=== PATIENT | male | born 1960 | race Caucasian/White ===

== ENCOUNTER 2021-01-26 17:23 | Emergency (ER) | payer OTHER ==
[~2021-01-26] VITALS: Ht 177.8 cm; Wt 113.6 kg
[2021-01-26 17:28] VITALS: TEMP 98.4
[2021-01-26 19:01] VITALS: BP 145/91; PULSE 83
== END 2021-01-26 19:01 | disposition home or self-care (01) ==
LOC: COL.ER 17:23
DX: J06.9 Acute upper respiratory infection, unspecified (principal); Z20.822 Contact with and (suspected) exposure to COVID-19

== ENCOUNTER 2021-01-29 13:50 | Inpatient (IN) | payer OTHER ==
[~2021-01-29] VITALS: Ht 177.8 cm; Wt 111.4 kg
[2021-01-29 14:32] LABS: BASO % 0.3 % (0.0-2.0); GRAN # 8.7 K/mm3 (1.4-6.5); GRAN % 84.3 % (42.2-75.2); LYMPH # 0.9 K/mm3 (1.2-3.4); LYMPH % 8.5 % (20.0-51.0); MEAN CELL VOLUME 88 fl (80.0-100.0); MEAN CORPUSCULAR HEMOGLOBIN 32 pg (27.0-31.0); MEAN CORPUSCULAR HGB CONC 36 g/dl (33.0-37.0); MEAN PLATELET VOLUME 9.7 fl (7.4-10.4); MONO # 0.7 K/mm3 (0.1-0.6); MONO % 6.6 % (1.7-9.3); PLATELET COUNT 175 K/mm3 (130-400); RED BLOOD COUNT 4.04 M/mm3 (4.20-5.60); REDCELL DISTRIBUTION WIDTH-CV 11.9 % (11.5-14.5)
[2021-01-29 14:33] LABS: HEMATOCRIT 35.7 % (42.0-52.0)
[2021-01-29] MEDS ORDERED: LATUDA120 MG PO (14:46)
[2021-01-29] MEDS ORDERED: ZOLOFT 100MG100 MG PO (14:46)
[2021-01-29] MEDS ORDERED: INVEGA6 MG PO ×2 (14:47→19:21)
[2021-01-29] MEDS ORDERED: EUTHYROX150 MCG PO (14:47)
[2021-01-29] MEDS ORDERED: CRESTOR20 MG PO (14:48)
[2021-01-29] MEDS ORDERED: DESYREL 100MG100 MG PO (14:48)
[2021-01-29 14:56] LABS: ALANINE AMINOTRANSFERASE 23 U/L (0-55); ALBUMIN 3.7 gm/dL (3.5-5.0); ALKALINE PHOSPHATASE 66 U/L (40-150); ANION GAP 11 mmol/L (7-16); AST,SGOT 25 U/L (5-34); BILIRUBIN,TOTAL 0.9 mg/dL (0.2-1.2); BLOOD UREA NITROGEN 13 mg/dL (8-26); C-REACTIVE PROTEIN 27.95 mg/dL (0.00-0.50); CALCIUM 9.7 mg/dL (8.4-10.2); CARBON DIOXIDE 20 mmol/L (22-29); CHLORIDE 101 mmol/L (98-107); CREATININE, serum 0.94 mg/dL (0.72-1.25); GLUCOSE 127 mg/dL (70-99); POTASSIUM 3.8 mmol/L (3.5-4.5); SODIUM 132 mmol/L (136-145); TOTAL PROTEIN 7.7 gm/dL (6.2-8.1)
[2021-01-29 15:01] LABS: TROPONIN-I < 0.010 ng/mL (0.00-0.033)
--- NOTE | 2021-01-29 18:00 | NUR ---
Patient admitted from the ED to room 311 for PNA. Upon initial assessment. Lungs sounds clear to auscultation. Normal S1 and S2 sounds present, radial and pedal pulses +2 bilaterally. Bowel sounds present in all four quadrants. No skin issues noted. VSS. Patient alert, unable to assess orientation. Patient extremely hard of hearing and is unable to see without glasses, which are in his apartment. Unable to complete admission assessments and paperwork due to the above impairments. Med rec completed based on home meds brought in with patient. Scheduled medications given. Patient is impulsive and is considered a high fall risk. No s/s of pain, discomfort, or further needs at this time. Call light in reach. Fall precautions in place. Report given to LISA Villalobos.
[2021-01-29 18:21] VITALS: BP 136/75; PULSE 83; TEMP 98.2
[2021-01-29 19:09] VITALS: BP 126/69; PULSE 101; TEMP 98
[2021-01-29] MEDS ORDERED: COLACE 100100 MG/CAP PO (19:21)
[2021-01-29 20:06] LABS: COLLECTION METHOD CLEAN CATCH
[2021-01-29 20:12] LABS: MUCOUS Present (NOT PRESENT); PH 6 (5-8); SQUAMOUS EPITHELIAL 0-2 /hpf (0-10); URINE APPEARANCE Clear (CLEAR/HAZY); URINE BACTERIA None Seen (NONE SEEN); URINE BILIRUBIN Negative (NEGATIVE); URINE BLOOD 2+ (NEGATIVE); URINE COLOR Yellow (YELLOW); URINE GLUCOSE Negative (NEGATIVE); URINE KETONE Trace (NEGATIVE); URINE LEUKOCYTE ESTERASE Negative (NEGATIVE); URINE NITRATE Negative (NEGATIVE); URINE PROTEIN(semi-quant) Negative (NEGATIVE); URINE RBC 0-2 /hpf (0-2); URINE UROBILINOGEN >=4.0 mg/dL (NEGATIVE)
[2021-01-29 23:48] VITALS: BP 129/69; PULSE 94; TEMP 102.1
--- NOTE | 2021-01-29 23:51 | NUR ---
PT TEMPERATURE ELEVATED AT THIS TIME. PT ASYMPTOMATIC. PT IS WARM TO TOUCH. ROOM TEMPERATURE LOWERED, COOL RAG PROVIDED, MEDICATION ADMINISTERED ORDERED. NURSE WILL CONTINUE TO MONITOR.
[2021-01-30] VITALS (8 sets, daily range): BP systolic 127–145; BP diastolic 58–87; PULSE 69–102; TEMP 97.9–100.7
--- NOTE | 2021-01-30 01:15 | NUR ---
PT TEMPERATURE RESOLVING, FROM 102.1 TO 100.4 TO 99.3 AT THIS TIME.
--- NOTE | 2021-01-30 06:13 | NUR ---
AT 0445 THIS MORNING PT BROKE OUT WITH RAISING TEMPERATURE AGAIN THIS NIGHT. PT PROVIDED MEDICATION, COOL RAG, ROOM TEMPERATURE REMAINS THE SAME. PT ASYMPTOMATIC. N/S CONTINUES TO INFUSE AT 100CC/HR TO RH IV. THIS NURSE WILL ENSURE TO RELAY TO ONCOMING SHIFT OF PT STATUS.
[2021-01-30 07:03] LABS: BASO % 0.3 % (0.0-2.0); EOS % 0.3 % (0-4.0); GRAN # 5.9 K/mm3 (1.4-6.5); GRAN % 75.4 % (42.2-75.2); HEMOGLOBIN 11.9 g/dl (13.5-18.0); LYMPH # 1.1 K/mm3 (1.2-3.4); LYMPH % 14.1 % (20.0-51.0); MEAN CELL VOLUME 91 fl (80.0-100.0); MEAN CORPUSCULAR HEMOGLOBIN 32 pg (27.0-31.0); MEAN CORPUSCULAR HGB CONC 36 g/dl (33.0-37.0); MEAN PLATELET VOLUME 9.6 fl (7.4-10.4); MONO # 0.8 K/mm3 (0.1-0.6); MONO % 9.6 % (1.7-9.3); PLATELET COUNT 164 K/mm3 (130-400); REDCELL DISTRIBUTION WIDTH-CV 11.9 % (11.5-14.5)
[2021-01-30 07:17] LABS: CREATININE, serum 0.81 mg/dL (0.72-1.25); POTASSIUM 3.7 mmol/L (3.5-4.5)
[2021-01-30 07:22] LABS: HEMATOCRIT 33.5 % (42.0-52.0)
--- NOTE | 2021-01-30 13:40 | NUR ---
PT JUST HAD AN UNWITNESSED FALL. PT STATES THAT HE FELL WHILE HE WAS IN THE BATHROOM. HE HAS BEEN IMPULSIVE IN GETTING UP. WHEN ENTERING THE ROOM, THE PATIENT LOOKED DISHELVELED, WHEN ASKING THE PATIENT WHAT HAPPENED, HE STATES THAT HE WENT TO THE BATHROOM, AND FELL AND HIT HIS HEAD. UPON ASSESSMENT, THE PATIENT DOES HAVE A HEMATOMA ON THE EYEBROW. THE PATIENT STATES THAT HIS EYE BROW WAS HURTING. IN ALL THE ASSESSMENTS, THE PATIENT STATES THAT HE WOULD LIKE US TO CALL TIAN CATES-CORRECTIONAL MAINTENANCE TECHNICIAN 13 YRS [phone]. PROVIDER WAS NOTIFIED; CT OF THE HEAD WAS ORDERED.
--- NOTE | 2021-01-30 15:15 | NUR ---
PT SUPPORT PERSON TIAN CALLED BACK AND STATES THAT SHE DECIDED TO CONTACT ANOTHER PERSON THAT HE COMMUNICATES WITH VIA FACEBOOK D/T HIS VISION AND HEARING IMPAIRMENT, AND HE STARTED HAVING ALL OVER BODY MUSCULAR PAIN Jan. SHE STATES THAT SHE IS CONCERNED THAT THE PATIENT HAS BEEN STEREOTYPED IN THE PAST D/T HIS INEFFECTIVE COMMUNICATION RELATED TO HIS HEARING AND VISION LOSS. DURING THIS RN'S COMMUNICATION WITH THE PATIENT ON THE ORDERS FOR A LUMBAR PUNCTURE, THE PATIENT STATES THAT HE DID HAVE ONE WHEN HE WAS 6YRS OLD, WELL WHEN HE WAS 20YRS OLD. 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 WHEN I WAS 20, THEY DIDN'T UNDERSTAND MY IMPAIRMENT, AND THOUGHT I HAD A BRAIN TUMOR AND DID THE SPINAL TAP THEN WELL, OF COURSE IT WAS NEGATIVE." THE PATIENT IS EFFECTIVE IN HIS COMMUNICATION, IS ALERT AND ORIENTED, AND IS A FANTASTIC HISTORIAN. HE GIVES THE YEAR IT HAPPENED, AND WHAT THE RESULTS WERE. THIS PATIENT DOES NOT HAVE ANY COGNITIVE IMPAIRMENT. HE IS ABLE TO STATE THE DATE AND TIME, WELL WHERE HE IS, AND WHY HE IS HERE. HIS ABILITY TO COMMUNICATE WITH HIS FRIENDS VIA FACEBOOK MESSENGER HAS GIVEN A HISTORY OF SYMPTOMS. TIAN STATES THAT SHE RECEIVED A STRING OF MESSAGES FROM HIM: Monday01/26/21 AT 1100AM: IN THAT MESSAGE TO HER HE STATES THAT HE WAS HAVING A HEADACHE, HAVING SOUND AND PHYSICAL SENSATIONS LIKE FLASHES. HE TOLD HER THAT HE HAD BEEN VACCINATED, AND HAD NOT RECEIVED THE BOOSTER YET. Monday01/26/21 AT 2100: HE STATES HE WENT TO THE ER, HAD BEEN TESTED FOR COVID AND WAS NEGATIVE, AND HAS BEEN HAVING NAUSEA DAILY. Monday01/27/21 AT 0600: HE STATES HE IS NOW HAVING DRY MOUTH, AND HIS HEADACHE IS GETTING WORSE. 01/28: THE PATIENT DOES NOT MESSAGE HER, AND SHE DOES NOT HEAR FROM HIM. Monday01/29/21 AT 0300: THE PATIENT SENDS A MESSAGE THAT STATES THAT HE IS FEELING WORSE, CAN'T WALK, HIS HANDS ARE NUMB, SEVERE HEADACHES AND FEELS LIKE HE IS HAVING BALANCE ISSUES. ALL OF THESE THINGS HAVE BEEN CONVEYED TO THE PROVIDER, DR. DAVIES, WHO STATES THAT SINCE HE IS UNAWARE OF THE PATIENT'S BASELINE, HE DOES NOT FEEL THAT HE REQUIRES A NEUROLOGY CONSULT AT THIS TIME.
[2021-01-30 19:38] LABS: CSF APPEARANCE CLEAR; CSF COLOR COLORLESS
[2021-01-30 19:39] LABS: CSF MONONUCLEAR 67 % (70-100); CSF POLYMORPHONUCLEAR 33 % (0-6); CSF RBC < 1 /mm3 (0-0)
[2021-01-31 04:15] VITALS: BP 139/75; PULSE 58; TEMP 97.8
--- NOTE | 2021-01-31 05:44 | NUR ---
PT HAD UNEVENTFUL NIGHT THIS SHIFT. GAIT REMAINS UNSTEADY BOTH WALKER AND GAIT BELT USED FOR AMBULATION. A/0X4, VERBALLY EXPRESSIVE AND ABLE TO FOLLOW VERBAL COMMANDS. N/S CONTINUES TO INFUSE AT 75CC/HR AND ABX. PT FEBRILE AT BEGINNING OF SHIFT, MEDICATION ADMINISTERED, COOL RAGS PROVIDED. FEVER RESOLVED AT THIS TIME. CALL LIGHT WITHIN REACH. BED LOW. BED ALARM ON.
[2021-01-31 06:48] VITALS: BP 116/56; PULSE 61; TEMP 99.1
[2021-01-31 06:53] LABS: CREATININE, serum 0.8 mg/dL (0.72-1.25); POTASSIUM 3.4 mmol/L (3.5-4.5)
[2021-01-31 06:58] LABS: BASO % 0.6 % (0.0-2.0); EOS # 0.2 K/mm3 (0.0-0.7); EOS % 3.2 % (0-4.0); GRAN # 4.1 K/mm3 (1.4-6.5); GRAN % 59.3 % (42.2-75.2); HEMOGLOBIN 11.7 g/dl (13.5-18.0); LYMPH # 1.8 K/mm3 (1.2-3.4); LYMPH % 25.9 % (20.0-51.0); MEAN CELL VOLUME 91 fl (80.0-100.0); MEAN CORPUSCULAR HEMOGLOBIN 31 pg (27.0-31.0); MEAN CORPUSCULAR HGB CONC 35 g/dl (33.0-37.0); MEAN PLATELET VOLUME 9.6 fl (7.4-10.4); MONO # 0.7 K/mm3 (0.1-0.6); MONO % 10.7 % (1.7-9.3); PLATELET COUNT 173 K/mm3 (130-400); RED BLOOD COUNT 3.73 M/mm3 (4.20-5.60)
[2021-01-31 07:08] LABS: HEMATOCRIT 33.9 % (42.0-52.0)
[2021-01-31 11:13] VITALS: BP 132/75; PULSE 68; TEMP 98.8
--- NOTE | 2021-01-31 13:04 | NUR ---
Sw met with the pt in . Pt is deaf and legally blind. Sw could not complete intake. Pt Emergency contact is a "friend". Sw will not contact pt friend for health information due to HIPPA. Sw was able to get information from chart, pt PCP is Charleen Levine and gets his medication from [facility]: Rony [phone] friend. D/C: Home.
[2021-01-31 14:59] VITALS: BP 131/87; PULSE 82; TEMP 98.5
--- NOTE | 2021-01-31 16:50 | NUR ---
PT STATES "I AM UNABLE TO CONTROL MY BLADDER." CONTACTED PROVIDER THOMAS TRUJILLO WHO WILL DISCUSS WITH DR. DAVIES.
[2021-01-31 20:20] VITALS: BP 123/65; PULSE 76; TEMP 98.1
[2021-01-31 23:51] VITALS: BP 118/59; PULSE 82; TEMP 98.3
[2021-02-01 00:46] VITALS: BP 118/59; PULSE 80; TEMP 98.4
[2021-02-01 04:06] VITALS: BP 112/69; PULSE 75; TEMP 97.9
[2021-02-01 06:33] LABS: COLLECTION METHOD CLEAN CATCH
[2021-02-01 06:39] LABS: BASO % 0.7 % (0.0-2.0); EOS # 0.3 K/mm3 (0.0-0.7); EOS % 4.9 % (0-4.0); GRAN # 3.2 K/mm3 (1.4-6.5); GRAN % 55.7 % (42.2-75.2); HEMOGLOBIN 11.4 g/dl (13.5-18.0); LYMPH # 1.7 K/mm3 (1.2-3.4); LYMPH % 30.1 % (20.0-51.0); MEAN CELL VOLUME 90 fl (80.0-100.0); MEAN CORPUSCULAR HEMOGLOBIN 31 pg (27.0-31.0); MEAN CORPUSCULAR HGB CONC 35 g/dl (33.0-37.0); MEAN PLATELET VOLUME 9.3 fl (7.4-10.4); MONO # 0.5 K/mm3 (0.1-0.6); MONO % 8.2 % (1.7-9.3); PLATELET COUNT 178 K/mm3 (130-400); RED BLOOD COUNT 3.63 M/mm3 (4.20-5.60); REDCELL DISTRIBUTION WIDTH-CV 12.1 % (11.5-14.5)
[2021-02-01 06:43] LABS: MUCOUS Present (NOT PRESENT); PH 6 (5-8); SQUAMOUS EPITHELIAL None Seen /hpf (0-10); URINE APPEARANCE Clear (CLEAR/HAZY); URINE BACTERIA None Seen (NONE SEEN); URINE BILIRUBIN Negative (NEGATIVE); URINE BLOOD 1+ (NEGATIVE); URINE COLOR Yellow (YELLOW); URINE GLUCOSE Negative (NEGATIVE); URINE KETONE Negative (NEGATIVE); URINE LEUKOCYTE ESTERASE Negative (NEGATIVE); URINE NITRATE Negative (NEGATIVE); URINE PROTEIN(semi-quant) Negative (NEGATIVE); URINE UROBILINOGEN Negative (NEGATIVE)
[2021-02-01 06:47] LABS: HEMATOCRIT 32.7 % (42.0-52.0)
[2021-02-01 06:53] LABS: CALCIUM 9.2 mg/dL (8.4-10.2); CREATININE, serum 0.76 mg/dL (0.72-1.25); POTASSIUM 3.5 mmol/L (3.5-4.5)
[2021-02-01 09:30] VITALS: BP 124/72; PULSE 73; TEMP 97.7
--- NOTE | 2021-02-01 11:00 | NUR ---
ASSESSMENT COMPLETE. PT BLIND AND HARD OF HEARING. PT CAN HEAR BETTER IN LEFT EAR, IF YOU TALK LOUDLY. PT RESTING IN BED. PT STATES HE HAS A LIGHT HEADACHE. PT DENIES NEED FOR PAIN MEDICATION. PT DENIES PALPITATIONS, SOB OR DIZZINESS. PT HAS MRI OF BRAIN, L & T SPINE SCHEDULE TODAY. PT STATES HE HAS NO OTHER NEEDS AT THIS TIME. CALL LIGHT WITHIN REACH.
[2021-02-01 12:05] VITALS: BP 127/88; PULSE 88; TEMP 97.5
--- NOTE | 2021-02-01 15:15 | NUR ---
Proof Machine Operator Supervisor attended clinical rounds with the team and PT is recommending IPR. PAMELA contacted GEORGE De Leon Director and gave referral. Patient will have MRI prior to discharge. PAMELA then contacted patient's friend, Ira to gather baseline information. Ira advised she used to be patient's boss when he worked at [employer]. Ira advised she now lives in [place] but checks in on patient from time to time. Per Ira, patient is fairly independent at home however occasionally gets rides from friends to appointments. 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 Ira is unsure if patient is currently on disability. PAMELA contacted PAMELA Rivera at [facility] as patient sees Dr. Grove for primary care. Nicole advised she has not been consulted on patient and that he was seen in November with no issues. PAMELA contacted Ernesto Financial Counselor to determine if patient may qualify for disability or Medicaid. PAMELA contacted GEORGE De Leon Director to give her the above update. Haley advised she will look at submitting to insurance once the MRI is done. Discharge Plan: IPR screen
[2021-02-01 17:12] VITALS: BP 140/76; PULSE 82; TEMP 98
--- NOTE | 2021-02-01 19:24 | NUR ---
RECEIVED CHANGE OF SHIFT REPORT FROM DAY SHIFT NURSES.
[2021-02-01 20:49] VITALS: BP 110/54; PULSE 80; TEMP 97.8
[2021-02-02] VITALS (8 sets, daily range): BP systolic 108–145; BP diastolic 59–82; PULSE 67–102; TEMP 97.6–98.8
--- NOTE | 2021-02-02 07:01 | NUR ---
CHANGE OF SHIFT REPORT GIVEN TO DAY SHIFT RNs, FNAI.
[2021-02-02 07:10] LABS: BASO # 0.1 K/mm3 (0.0-0.2); BASO % 0.7 % (0.0-2.0); EOS # 0.4 K/mm3 (0.0-0.7); EOS % 4.7 % (0-4.0); GRAN # 4.7 K/mm3 (1.4-6.5); GRAN % 61.5 % (42.2-75.2); HEMOGLOBIN 12.3 g/dl (13.5-18.0); LYMPH % 25.5 % (20.0-51.0); MEAN CELL VOLUME 89 fl (80.0-100.0); MEAN CORPUSCULAR HEMOGLOBIN 32 pg (27.0-31.0); MEAN CORPUSCULAR HGB CONC 35 g/dl (33.0-37.0); MEAN PLATELET VOLUME 9.6 fl (7.4-10.4); MONO # 0.6 K/mm3 (0.1-0.6); MONO % 7.2 % (1.7-9.3); PLATELET COUNT 227 K/mm3 (130-400); REDCELL DISTRIBUTION WIDTH-CV 11.9 % (11.5-14.5)
[2021-02-02 07:17] LABS: CALCIUM 9.5 mg/dL (8.4-10.2); CREATININE, serum 0.78 mg/dL (0.72-1.25); POTASSIUM 3.6 mmol/L (3.5-4.5)
[2021-02-02 07:21] LABS: HEMATOCRIT 34.8 % (42.0-52.0)
--- NOTE | 2021-02-02 09:00 | NUR ---
ASSESSMENT COMPLETE. PT COOPERATIVE WITH CARES. PT IS HARD OF HEARING AND LEGALLY BLIND. PT RESTING IN BED EATING BREAKFAST. PT DENIES PAIN, PALPITATIONS, SOB OR DIZZINESS. WHEN ASKED IF PT HAS ANY OTHER NEEDS, PT STATES NO. CALL LIGHT WITHIN REACH.
--- NOTE | 2021-02-02 16:11 | NUR ---
Haley, IPR Director, reports that she submitted to insurance for auth and is still awaiting approval.
--- NOTE | 2021-02-02 17:51 | NUR ---
PT IN BED EATING DINNER NOW. PHYSICIAN VISITED PT TO LET HIM KNOW AN ABX WAS ADDED TO HIS MEDS. PT HAD AN UNEVENTFUL DAY. PT DENIES PAIN, PALPITATION, SOB, AND DIZZINESS. PT ASKED IF HE HAD ANY OTHER NEEDS. PT STATED, NO. CALL LIGHT WITHIN REACH.
--- NOTE | 2021-02-02 20:15 | NUR ---
PATIENT IS RESTING IN BED.PATIENT IS BLIND AND [place].PATIENT TOOK PILLS WHOLE WUTH NO TROUBLE.PATIENT DENIES PAIN.PATIENT IS UP WITH ONE WITH A WALKER.pATIENT DENIES PAIN.NO OTHER NEEDS AT THIS TIME.
[2021-02-03 00:02] VITALS: BP 148/73; PULSE 69; TEMP 97.9
[2021-02-03 03:37] VITALS: BP 120/80; PULSE 71; TEMP 98.1
--- NOTE | 2021-02-03 04:42 | NUR ---
PATIENT HAD UNEVENTFUL NIGHT.SAFETY MEASURES IN PLACE.NO OTHER NEEDS AT THIS TIME.
[2021-02-03 07:37] VITALS: BP 116/80; PULSE 63; TEMP 97.5
--- NOTE | 2021-02-03 09:14 | NUR ---
Patient is currently ambulating in the eli w/ this assistance of PT. Patient is using a walker. Gait is impaired and patient appears slightly unsteady. Patient is slow to move. Dr. Crandall told this RN that he would like the patient to sit in the recliner today. PT was told and will place the patient in the recliner after ambulation.
[2021-02-03 11:38] LABS: HSV 2 DNA PCR QUAL Not Detected (())
[2021-02-03 11:44] VITALS: BP 134/78; PULSE 85; TEMP 98.4
[2021-02-03 16:38] VITALS: BP 160/80; PULSE 74; TEMP 98.8
[2021-02-03] MEDS ORDERED: OMNICEF 300MG300 MG PO (16:48)
--- NOTE | 2021-02-03 17:11 | NUR ---
Haley, IPR Director, reports that she received approval from the patient's insurance and they are all good to take the patient today. The patient is to discharge today, 02/03, to [facility]. No additional needs at this time.
--- NOTE | 2021-02-03 18:19 | NUR ---
Patient being discharged and made IPR status. Report given to Jaclyn Brito RN.
== END 2021-02-03 18:00 | DRG 871 ==
LOC: COL.ER 13:50 → MEDICAL 16:11 → EDBEDREQ 16:12 → MEDICAL 01-30 09:42
PROVIDERS: Emergency Medicine; Physician Assistant; ADMIT Student in an Organized Health Care Education/Training Program
PROC: 009U3ZX Drainage of Spinal Canal, Percutaneous Approach, Diagnostic (ICD-10-PCS; principal; 2021-01-30)
DX: A41.9 Sepsis, unspecified organism (principal); J18.9 Pneumonia, unspecified organism; G93.41 Metabolic encephalopathy; E87.1 Hypo-osmolality and hyponatremia; E03.9 Hypothyroidism, unspecified; F25.9 Schizoaffective disorder, unspecified; E78.5 Hyperlipidemia, unspecified; H91.90 Unspecified hearing loss, unspecified ear; H54.8 Legal blindness, as defined in USA; R32 Unspecified urinary incontinence; E87.6 Hypokalemia; Z23 Encounter for immunization
CPT/HCPCS: 99222-AI; 99233-AI; 99239; A9585; J0133; J0696; J1650; J3370; J7030; J7040; J7050; Q9967

== ENCOUNTER 2021-02-03 16:57 | Inpatient (IN) | payer OTHER ==
[~2021-02-03] VITALS: Ht 177.8 cm; Wt 111.8 kg
[~2021-02-03 16:57] MED LIST: COLACE 100100 MG/CAP PO; CRESTOR20 MG PO; DESYREL 100MG100 MG PO; EUTHYROX150 MCG PO; INVEGA6 MG PO; LATUDA120 MG PO; OMNICEF 300MG300 MG PO; ZOLOFT 100MG100 MG PO
--- NOTE | 2021-02-03 18:15 | NUR ---
Patient to room 338 by wheelchair from the medical unit. 2xassist to the bed with a gait belt. Nurse oriented the patient to location, room and bed. Patient positioned for comfort. Call light within reach. Bed alarm on
[2021-02-03 18:59] VITALS: BP 143/82; PULSE 76; TEMP 98.6
--- NOTE | 2021-02-03 20:30 | NUR ---
PT RESTING IN BED. LEGALLY BLIND/ DEAF RT EAR/ [place] LT EAR. DYARTHIC NOTED. FOLLOWS DIRECTIONS WITH SLOW RESPONSE. INCONT OF URINE. CHANGE BRIEFS. PT USED URINAL. DENIES PAIN/. CALL LIGHT IN REACH. BED ALARM SET.
[2021-02-04 05:10] VITALS: BP 144/73; PULSE 64; TEMP 98.4
--- NOTE | 2021-02-04 07:06 | NUR ---
Report received from LISA Alejandra. Patient is sleeping in bed. Call light and bedside table are within reach. Will continue to monitor patient throughout shift.
[2021-02-04 17:42] VITALS: BP 138/82; PULSE 93; TEMP 98.4
--- NOTE | 2021-02-04 19:00 | NUR ---
RECEIVED CHANGE OF SHIFT REPORT FROM DAY SHIFT NURSE. BED ALARM ON WHEN IN BED WITH CALL LIGHT WITHIN REACH.
[2021-02-05 04:02] VITALS: BP 132/91; PULSE 78; TEMP 98.2
[2021-02-05 06:49] LABS: BASO # 0.1 K/mm3 (0.0-0.2); BASO % 0.7 % (0.0-2.0); EOS # 0.4 K/mm3 (0.0-0.7); EOS % 3.5 % (0-4.0); GRAN % 65.2 % (42.2-75.2); HEMATOCRIT 40.5 % (42.0-52.0); LYMPH # 2.6 K/mm3 (1.2-3.4); LYMPH % 24.3 % (20.0-51.0); MEAN CELL VOLUME 91 fl (80.0-100.0); MEAN CORPUSCULAR HEMOGLOBIN 32 pg (27.0-31.0); MEAN CORPUSCULAR HGB CONC 35 g/dl (33.0-37.0); MEAN PLATELET VOLUME 9.5 fl (7.4-10.4); MONO # 0.6 K/mm3 (0.1-0.6); MONO % 5.7 % (1.7-9.3); PLATELET COUNT 315 K/mm3 (130-400); RED BLOOD COUNT 4.43 M/mm3 (4.20-5.60); REDCELL DISTRIBUTION WIDTH-CV 12.2 % (11.5-14.5)
[2021-02-05 07:13] LABS: CALCIUM 9.2 mg/dL (8.4-10.2); CREATININE, serum 0.94 mg/dL (0.72-1.25); MAGNESIUM 2.1 mg/dL (1.6-2.6); POTASSIUM 3.8 mmol/L (3.5-4.5)
--- NOTE | 2021-02-05 07:23 | NUR ---
CHANGE OF SHIFT REPORT GIVEN TO DAY SHIFT RNSUYAPA
[2021-02-05 08:19] VITALS: BP 133/70; PULSE 68; TEMP 98
--- NOTE | 2021-02-05 13:00 | NUR ---
Pt has done well today. He has worked with therapy and has had no complaints. He is able to feed himself once the tray is set up. Pt is one assist with ambulation and does well with cues. Chair/bed alarms on. Call light within reach.
--- NOTE | 2021-02-05 16:02 | NUR ---
fabric and textile factory worker attempted to complete IPR intake with patient but was unsuccessful due to communication barriers. Per previous SW notes: Patient resides at home independently however is legally deaf and blind. PCP is Dr. Grove and the patient utilizes [facility] for perscriptions. Patient's emergency contact is his friend Kelsey ([phone]) who now lives in [place].
[2021-02-05 18:35] VITALS: BP 137/72; PULSE 76; TEMP 97.9
--- NOTE | 2021-02-05 18:49 | NUR ---
RECEIVED CHANGE OF SHIFT REPORT FROM DAY SHIFT NURSE. PATIENT RESTING IN BED DURING REPORT, DOES NOT WAKE WHEN NURSING STAFF ENTER ROOM, BREATHING NONLABORED AND EVEN. BED ALARM ON WITH CALL LIGHT WITHIN REACH.
[2021-02-06 05:30] VITALS: BP 135/81; PULSE 59; TEMP 97.8
--- NOTE | 2021-02-06 07:02 | NUR ---
CHANGE OF SHIFT REPORT GIVEN TO DAY SHIFT RNELYSSA.
--- NOTE | 2021-02-06 07:44 | NUR ---
Patient sitting up in bed, is independent with repositioning and eating. A&O. VSS. Denies pain and discomfort. MODOC and slow to answer. No further needs expressed. Call light within reach. Bed alarm on
[2021-02-06 17:25] VITALS: BP 147/84; PULSE 81; TEMP 98
--- NOTE | 2021-02-06 18:11 | NUR ---
Patient had an uneventful day. Worked with therapy and tolerated well. A&Ox3. VSS. Patient independent with eating and repositioning. Patient called nursing staff for assistance with ambulation or needs. Denies pain and discomfort. Call light within reach. Bed alarm on
--- NOTE | 2021-02-06 22:36 | NUR ---
PT USES CALL LIGHT BUT DOES NOT ANSWER. PT IS IN BED, STATES THAT HE HAS SPILLED HIS URINAL. PT SPEAKS VERY SOFTLY BUT IS TETLIN IN RIGHT EAR. PT'S LINENS ARE CHANGED ET PERICARE COMPLETED. PT DENIES NEED TO USE BR @ THIS TIME OR OTHER NEEDS, STATES THANK YOU. RESPIRATIONS ARE UNLABORED. BED ALARM ON, CALL LIGHT WITHIN REACH.
[2021-02-07 03:12] VITALS: BP 138/75; PULSE 89; TEMP 98.2
--- NOTE | 2021-02-07 04:50 | NUR ---
PT INCONTINENT OF A LARGE AMOUNT OF URINE. PT HAD BEEN USING URINAL ET HAD SPILLED THE URINE BACK ON HIMSELF. EXPLAINED TO PT THAT IT MAY BE EASIER TO ASK FOR HELP WITH URINAL IN FUTURE. LINENS ARE CHANGED WITH 1 ASSIST, PT IS ABLE TO EASILY TURN SELF IN BED. SYNTHROID ADMINISTERED. PT HAS NO PROBLEMS SWALLOWING ET HOLDS WATER INDEPENDENTLY. PT DENIES OTHER NEEDS. RESPIRATIONS UNLABORED. BED ALARM ON, CALL LIGHT WITHIN REACH.
--- NOTE | 2021-02-07 08:00 | NUR ---
Patient called nursing staff for assistance to use the bathroom. Patient ambulated with 1xassist, gait belt and walker to the bathroom. A&Ox3. VSS. Denies pain and discomfort. Independent in the bed and with feeds. No further needs expressed. Call light within reach. Bed alarm on
[2021-02-07 16:57] VITALS: BP 145/87; PULSE 84; TEMP 98.8
--- NOTE | 2021-02-07 17:36 | NUR ---
Patient called several times to go to the bathroom. 1xassit with gait belt and walker, patient has had loose stools, but no incontinent BM. A&O. Denies pain and discomfort. Independent in bed and with feeds. Call light within reach. Bed alarm on
--- NOTE | 2021-02-07 19:32 | NUR ---
PT RESTING IN BED. LEGALLY BLIND AND DEAF RT EAR. [place] LT EAR. DYARTHIA NOTED. COMMUNCATION IS A CHALLENGE BUT PT ABLE TO MAKE NEEDS KNOWN. PT INCONTINENT OF URINE. CHANGES LINEN AND BRIEFS. CALL LIGHT IN REACH BED ALARM SET.
[2021-02-08 06:17] VITALS: BP 136/71; PULSE 69; TEMP 97.2
--- NOTE | 2021-02-08 07:00 | NUR ---
Pt resting in bed. Will continue to monitor.
--- NOTE | 2021-02-08 12:42 | NUR ---
SPOKE WITH GERMAN RODRIGUEZ REGARDING PSYCH CONSULT. STATE SHE HAS INTIATED CONSULT.
--- NOTE | 2021-02-08 13:14 | NUR ---
Admission QIM scores were reviewed by the team. Code of 3 chosen for oral hygiene was determined by team discussion to be the most usual performance for this patient during the assessment period. Code of 1 chosen for toilet hygiene was determined by team discussion to be the most usual performance for this patient during the assessment period. Code of 2 chosen for toileting transfers was determined by team discussion to be the most usual performance for this patient during the assessment period. Code of 5 chosen for upper body dressing was determined by team discussion to be the most usual performance before interventions for this patient during the assessment period. Code of 3 chosen for lower body dressing was determined by team discussion to be the most usual performance for this patient during the assessment period. Code of 4 chosen for putting on/taking off footwear was determined by team discussion to be the most usual performance for this patient during the assessment period. Code of 4 chosen for rolling left to right was determined by team discussion to be the most usual performance before interventions for this patient during the assessment period. Code of 4 chosen for sit to lying was determined by team discussion to be the most usual performance before interventions for this patient during the assessment period. Code of 4 chosen for lying to sitting on side of bed was determined by team discussion to be the most usual performance for this patient during the assessment period. Code of 3 for sit to stand was determined by team discussion to be the most usual performance for this patient during the assessment period. Code of 3 for chair/bed to chair transfers was determined by team discussion to be the most usual performance for this patient during the assessment period.--PD Candelaria
[2021-02-08 16:40] VITALS: BP 129/77; PULSE 91; TEMP 98.5
[2021-02-09 05:01] VITALS: BP 121/62; PULSE 84; TEMP 97.4
--- NOTE | 2021-02-09 06:45 | NUR ---
Report received from LISA Bray. Patient is sleeping in bed. Call light and bedside table are within reach. Will continue to monitor patient throughout shift.
--- NOTE | 2021-02-09 07:32 | NUR ---
pt had several episodes of incontinence this shift, linens changed x3, up to restroom this am using GB/walker and 1 assist for BM.
--- NOTE | 2021-02-09 16:05 | NUR ---
well service derrick worker attempted to meet with patient again to complete intake. Patient has a white board in his room which communication was done through, but still limited.Patient can also respond with simple "yes" or "no" answers. Patient states that he does live at home alone and works. Unknown if he works FT/PT, where or how he transports.Patient confirms that he does not have any assistive devices such as hearing aids to help with his debilities.When asked if the patient had any children he verbalized "no". When asked if he had any sibilings he verbalized "no". Patient proceeds to write down the names of : Anais, Oliva and Kacy in addition to another word that was illegible and was wasn't able to verbally communicate their relation. Attempt was made to contact the patient's friend Ira and was unsuccessful. Attempt was made to contact Nicole at [employer] and was unsuccessful. Message left for both, to see if they can provide insight to gaps in the above information. Per Haley in IPR patient's deficit's in vision and hearing are due to the patient having Encephalopathy as a child and that this has been a long standing barrier for him.
--- NOTE | 2021-02-09 16:20 | NUR ---
Patient went to surgery for cholecystecotomy
[2021-02-09 17:03] VITALS: BP 124/90; PULSE 89; TEMP 98.9
--- NOTE | 2021-02-10 03:47 | NUR ---
Patient rested quietly throughout night, uses call bledsoe appropriately, call bledsoe w/i reach, assisted to bathroom, fall precautions in place, unsteady on feet, legally blind, [place], used communication board to write with success, no IV, will continue to monitor
[2021-02-10 05:19] VITALS: BP 123/91; PULSE 67; TEMP 97.9
--- NOTE | 2021-02-10 07:03 | NUR ---
Report received from LISA Ibarra. Patient is sleeping in bed. Call light and bedside table are within reach. Will continue to monitor patient throughout shift.
--- NOTE | 2021-02-10 16:45 | NUR ---
Wool Broker met with patient and provided copy of team conference notes. SW advised patient that the team would re-evaluate in a week and were not ready to set a discharge date. Patient gave SW a thumbs up. SW to follow up with patient's friends on if they can bring in patient's magnifying glasses and computer keyboard.
[2021-02-10 18:00] VITALS: BP 147/70; PULSE 73; TEMP 98.6
--- NOTE | 2021-02-10 21:37 | NUR ---
PT RESTING IN BED. LEGALLY BLIND. DEAF IN RT EAR. POOR HEARING IN LT. SPEECH DIFFICULT TO UNDERSTAND. INCONTINENT OF URINE. CALL LIGHT IN REACH. BED ALARM SET.
[2021-02-11 04:57] VITALS: BP 116/70; PULSE 61; TEMP 97.6
--- NOTE | 2021-02-11 07:03 | NUR ---
Report received from LISA Alejandra. Patient is sleeping in bed. Call light and bedside table are within reach. Will continue to monitor patient throughout shift.
--- NOTE | 2021-02-11 16:31 | NUR ---
Nicole ROACH from [facility] who provided additional information on the patient however it is limited due to the patient being new to them. His old physicians were Haley/[facility]. Per Nicole, Patient has his medications managed through [facility] and sees Zandra Green.Patient does have specialized glasses that helps him see and that all communication he has with the physicians is done through written form.Patient was a patient at [facility] in [facility]. Has noted that the patient was utilizing [facility] in the past and that he was established with a fair program with [facility]. Throughout the patient's chart he has multiple addresses listed in addition to multiple phone numbers with no names attached to them. No emergency contact is listed in the patient's chart. In the patient's history, his mother 7 years ago and his father an unknown amount of time ago. [facility] does not have a DPOA-HC on file.
[2021-02-11 18:00] VITALS: BP 131/64; PULSE 85; TEMP 98.1
--- NOTE | 2021-02-11 19:00 | NUR ---
RECEIVED CHANGE OF SHIFT REPORT FROM DAY SHIFT NURSE.
[2021-02-12 05:06] VITALS: BP 125/65; PULSE 70; TEMP 97.3
--- NOTE | 2021-02-12 07:00 | NUR ---
appears to be sleeping, bedside shift report received from LISA Andrade
--- NOTE | 2021-02-12 07:04 | NUR ---
CHANGE OF SHIFT REPORT GIVEN TO DAY SHIFT TAYLOR GONZALEZ.
--- NOTE | 2021-02-12 07:15 | NUR ---
awakened and assisted him sitting up in bed to have breakfast,
[2021-02-12 07:34] LABS: BASO # 0.1 K/mm3 (0.0-0.2); BASO % 0.8 % (0.0-2.0); EOS # 0.2 K/mm3 (0.0-0.7); EOS % 2.8 % (0-4.0); GRAN # 5.4 K/mm3 (1.4-6.5); GRAN % 62.3 % (42.2-75.2); HEMATOCRIT 43.2 % (42.0-52.0); HEMOGLOBIN 14.7 g/dl (13.5-18.0); LYMPH # 2.2 K/mm3 (1.2-3.4); MEAN CELL VOLUME 93 fl (80.0-100.0); MEAN CORPUSCULAR HEMOGLOBIN 32 pg (27.0-31.0); MEAN CORPUSCULAR HGB CONC 34 g/dl (33.0-37.0); MEAN PLATELET VOLUME 10.2 fl (7.4-10.4); MONO # 0.7 K/mm3 (0.1-0.6); MONO % 7.9 % (1.7-9.3); PLATELET COUNT 308 K/mm3 (130-400); RED BLOOD COUNT 4.63 M/mm3 (4.20-5.60); REDCELL DISTRIBUTION WIDTH-CV 12.5 % (11.5-14.5)
[2021-02-12 07:48] LABS: CALCIUM 9.7 mg/dL (8.4-10.2); CREATININE, serum 1.07 mg/dL (0.72-1.25); MAGNESIUM 2.1 mg/dL (1.6-2.6); POTASSIUM 4.3 mmol/L (3.5-4.5)
--- NOTE | 2021-02-12 08:00 | NUR ---
had breakfast and tolerated well, incontinent of urine and care provided, full assessment completed, see interventions for further info,
--- NOTE | 2021-02-12 10:32 | NUR ---
has been working with physical and occupational therapy, is now back in bed to rest
--- NOTE | 2021-02-12 11:04 | NUR ---
physical therapy in to work with patient
--- NOTE | 2021-02-12 11:50 | NUR ---
heard chair alarm sound and entered room and patient was out of chair and in his bed
--- NOTE | 2021-02-12 12:30 | NUR ---
assisted with stting up in bed to eat lunch
--- NOTE | 2021-02-12 12:35 | NUR ---
assisted him with sitting up in bed for lunch
--- NOTE | 2021-02-12 12:58 | NUR ---
finished lunch and resting in bed
--- NOTE | 2021-02-12 13:10 | NUR ---
physical therapy in to work with patient, bedside shift report given to LISA Gibbs
--- NOTE | 2021-02-12 13:53 | NUR ---
Received report from LISA Sneed. To take over care for remainder of shift.
--- NOTE | 2021-02-12 15:04 | NUR ---
ASSESSMENT COMPLETED AT THIS TIME. PT ALERT AND ORIENTED X3, PT SPEECH SLURRED SOME DIFFICULTY UNDERSTANDING PT. PT DISORIENTED TO TIME. PT HAS CLEAR LUNGS TO AUSCULTATION. PT SKIN WITHIN DEFINED LIMITS. PT ACTIVE BOWEL SOUNDS, NON-TENDER. PT HAS 2+ PULSES IN ALL EXTREMITIES. PT CALL LIGHT WITHIN REACH.
[2021-02-12 18:30] VITALS: BP 157/88; PULSE 91; TEMP 97.3
--- NOTE | 2021-02-12 19:00 | NUR ---
RECEIVED CHANGE OF SHIFT REPORT FROM DAY SHIFT NURSE. PATIENT SLEEPING IN BED DURING REPORT, BED ALARM ON WITH CALL LIGHT WITHIN REACH.
--- NOTE | 2021-02-12 19:08 | NUR ---
No significant changes in pt status noted this shift. Pt able to call for needs. Report given to boxing promoter.
[2021-02-13 04:23] VITALS: BP 149/78; PULSE 85; TEMP 98
--- NOTE | 2021-02-13 07:00 | NUR ---
CHANGE OF SHIFT REPORT GIVEN TO DAY SHIFT TY GONZALEZ.
--- NOTE | 2021-02-13 07:18 | NUR ---
Report received from Lupe GONZALEZ. Patient is sleeping in bed. Call light and bedside table are within reach. Will continue to monitor patient throughout shift.
[2021-02-13 15:47] VITALS: BP 122/75; PULSE 99; TEMP 98.3
--- NOTE | 2021-02-13 19:08 | NUR ---
RECEIVED CHANGE OF SHIFT REPORT FROM DAY SHIFT RN. BED ALARM ON WITH CALL LIGHT WITHIN REACH.
--- NOTE | 2021-02-13 20:09 | NUR ---
DENIES CHEST PAIN/SOA/NAUSEA AND INCONTINENCE AT THIS TIME. AWAKENS EASILY WHEN NURSING ENTERS ROOM FOR TREATMENTS AT THIS TIME. DENIES ANY NEEDS CURRENTLY. BED ALARM ON AND CALL LIGHT WITHIN REACH.
--- NOTE | 2021-02-14 03:33 | NUR ---
PATIENT ABLE TO ASSIST WITH REPOSITIONING ON COMMAND WHILE IN BED WITH ADULT DIAPER CHANGE OUT DUE TO INCONTINENCE. PATIENT DENIES ANY NEEDS CURRENTLY. BED ALARM ON, CALL LIGHT WITHIN REACH.
[2021-02-14 04:30] VITALS: BP 130/70; PULSE 74; TEMP 97.8
--- NOTE | 2021-02-14 07:21 | NUR ---
CHANGE OF SHIFT REPORT GIVEN TO DAY SHIFT TY GONZALEZ.
--- NOTE | 2021-02-14 07:21 | NUR ---
Report received from LISA Andrade. Patient is awake and lying in bed. Call light and bedside table are within reach. Will continue to monitor patient throughout shift.
[2021-02-14 16:26] VITALS: BP 141/97; PULSE 93; TEMP 98.3
--- NOTE | 2021-02-14 18:39 | NUR ---
Patient exhibited agressive and "tantrum like" behavior. Patient at one time punched the almost full bottle of supplemental drink when aid was talking with him and spilled it all over the night stand. Patient also kicked PREFORMS LAMINATOR. Patient would throw himself down on the bed when he became frustrated and would kick his legs. Patient stiffened both time when trying to stand him up and both time it resulted in patient almost falling. Patient continually took his brief off and kept pushing the call light. Patient also kept throwing himself in bed causing the bed alarm to go off. Patient did ask this nurse how long does the "brain fog" lasts. This nurse was unable to figure out the cause of his frustration. Will continue to monitor patient throughout shift.
--- NOTE | 2021-02-14 19:00 | NUR ---
RECEIVED CHANGE OF SHIFT REPORT FROM DAY SHIFT RN. BED ALARM ON WHEN IN BED. CALL LIGHT WITHIN REACH. PATIENT CONTINUES TO BE INCONTINENT OF URINE, AT TIME TAKING OFF ADULT DIAPERS BEFORE CALLING STAFF FOR INCONTINENT CARE. PATIENT IS ABLE TO REPOSITION SELF FOR INCONTINENT/COMPLETE LINEN CHANGES PRN.
[2021-02-15 05:18] VITALS: BP 118/82; PULSE 75; TEMP 97.3
--- NOTE | 2021-02-15 06:56 | NUR ---
Pt. progressing w/ plan of care. Pt. awake. Bedside shift report received from LISA Worrell. Pt. was incontinent of urine, incontinent care provided. Needs addressed, call light and belongings in reach.
--- NOTE | 2021-02-15 07:24 | NUR ---
CHANGE OF SHIFT REPORT GIVEN TO DAY SHIFT RNDANUTA.
--- NOTE | 2021-02-15 09:00 | NUR ---
Pt.'s weight in the wheelchair was 111.1 kg on the standing scale. The wheelchair weighs 19.68kg (43.3lbs) there was a significant change in weight difference, the previous scale was the bed scale when pt. was being weighed.
--- NOTE | 2021-02-15 09:02 | NUR ---
AM meds given and assessment complete. Pt. was incontinent of a BM, pericare /incontinent care provided. Speech in pt.'s room to work with patient. Call light in reach.
[2021-02-15 12:44] VITALS: BP 114/68; PULSE 104; TEMP 97.1
[2021-02-15 13:25] LABS: BASO # 0.1 K/mm3 (0.0-0.2); BASO % 0.5 % (0.0-2.0); EOS # 0.1 K/mm3 (0.0-0.7); EOS % 0.8 % (0-4.0); GRAN # 9.1 K/mm3 (1.4-6.5); GRAN % 70.7 % (42.2-75.2); HEMATOCRIT 46.6 % (42.0-52.0); HEMOGLOBIN 15.7 g/dl (13.5-18.0); LYMPH # 2.8 K/mm3 (1.2-3.4); LYMPH % 21.5 % (20.0-51.0); MEAN CELL VOLUME 95 fl (80.0-100.0); MEAN CORPUSCULAR HEMOGLOBIN 32 pg (27.0-31.0); MEAN CORPUSCULAR HGB CONC 34 g/dl (33.0-37.0); MEAN PLATELET VOLUME 10.2 fl (7.4-10.4); MONO # 0.8 K/mm3 (0.1-0.6); MONO % 6.2 % (1.7-9.3); PLATELET COUNT 301 K/mm3 (130-400); RED BLOOD COUNT 4.92 M/mm3 (4.20-5.60); REDCELL DISTRIBUTION WIDTH-CV 12.6 % (11.5-14.5)
--- NOTE | 2021-02-15 13:34 | NUR ---
Pt. found in the hallway on the floor by the plumbing warehouse helper with the chair alarm going off. The pt. was assisted safely back to the wheelchair and then pt. was assisted to the bed with two staff members. THOMAS Griffin notifiedGaby in to examine the patient.
[2021-02-15 13:47] LABS: ALANINE AMINOTRANSFERASE 23 U/L (0-55); ALBUMIN 4.4 gm/dL (3.5-5.0); ALKALINE PHOSPHATASE 84 U/L (40-150); ANION GAP 12 mmol/L (7-16); AST,SGOT 18 U/L (5-34); BILIRUBIN,TOTAL 0.6 mg/dL (0.2-1.2); BLOOD UREA NITROGEN 17 mg/dL (8-26); CALCIUM 9.7 mg/dL (8.4-10.2); CARBON DIOXIDE 26 mmol/L (22-29); CHLORIDE 103 mmol/L (98-107); CREATININE, serum 1.21 mg/dL (0.72-1.25); GLUCOSE 147 mg/dL (70-99); SODIUM 141 mmol/L (136-145); TOTAL PROTEIN 7.8 gm/dL (6.2-8.1)
[2021-02-15 13:53] LABS: TROPONIN-I < 0.010 ng/mL (0.00-0.033)
[2021-02-15 17:39] VITALS: BP 112/70; PULSE 85; TEMP 97.9
--- NOTE | 2021-02-16 05:38 | NUR ---
pt appropriately uses call light to notify nurse of incontinence, x2 instances this shift. has been able to rest quietly tonight, bed alarm on.
[2021-02-16 06:21] VITALS: BP 120/84; PULSE 67; TEMP 97.5
--- NOTE | 2021-02-16 06:54 | NUR ---
appears to be sleeping, bedside shift report received from LISA Bray
--- NOTE | 2021-02-16 07:17 | NUR ---
repositioned in bed and sitting up to have breakfast,
--- NOTE | 2021-02-16 08:01 | NUR ---
had breakfast and is resting now, full assessment completed, see interventions for further info, was incontinent of urine and care provided, has abrasion to forehead and to right knee, left elbow reddened,
--- NOTE | 2021-02-16 08:04 | NUR ---
after leaving the room patient is very restless in bed, moving from side to side and from back to stomach, when asked if he is OK he responds with yes, bed alarm on and 4 siderails up
--- NOTE | 2021-02-16 08:32 | NUR ---
occupational therapy is in working with patient, called nurse to room because he is very unsteady today and unable to hold himself upright, leans and falls to side when trying to put on socks, patient informed therapist he felt dizzy, BP 142/77 and pulse 102, therapist will continue to work with him, see her documentation also for further info
--- NOTE | 2021-02-16 09:00 | NUR ---
in WC and out in eli with therapist, Dr Lantigua talking with patient
--- NOTE | 2021-02-16 09:17 | NUR ---
speech therapy now in to work with patient
--- NOTE | 2021-02-16 10:16 | NUR ---
physical therapy in to work with patient, out of room and will go to therpy work room
--- NOTE | 2021-02-16 11:01 | NUR ---
returned from physical therapy and assisted out of WC and into recliner, he remains unsteady on his feet and requires much queing and assistance, chair alarm is on, see therapy not for further info
--- NOTE | 2021-02-16 11:56 | NUR ---
orders received, spoke with sap technical developer and he is to be NPO for the MRI of brain, lab in to draw blood
--- NOTE | 2021-02-16 12:30 | NUR ---
used call light and when entered the room he was indicating he wanted to return to bed, assisted out of recliner and into bed
[2021-02-16 12:33] LABS: BASO # 0.1 K/mm3 (0.0-0.2); BASO % 0.5 % (0.0-2.0); EOS # 0.1 K/mm3 (0.0-0.7); EOS % 0.9 % (0-4.0); GRAN % 66.2 % (42.2-75.2); HEMATOCRIT 45.1 % (42.0-52.0); HEMOGLOBIN 15.5 g/dl (13.5-18.0); LYMPH # 2.6 K/mm3 (1.2-3.4); LYMPH % 24.7 % (20.0-51.0); MEAN CELL VOLUME 93 fl (80.0-100.0); MEAN CORPUSCULAR HEMOGLOBIN 32 pg (27.0-31.0); MEAN CORPUSCULAR HGB CONC 34 g/dl (33.0-37.0); MEAN PLATELET VOLUME 10.3 fl (7.4-10.4); MONO # 0.8 K/mm3 (0.1-0.6); MONO % 7.4 % (1.7-9.3); PLATELET COUNT 261 K/mm3 (130-400); RED BLOOD COUNT 4.85 M/mm3 (4.20-5.60); REDCELL DISTRIBUTION WIDTH-CV 12.9 % (11.5-14.5)
[2021-02-16 12:52] LABS: ALBUMIN 4.3 gm/dL (3.5-5.0); BILIRUBIN,TOTAL 0.5 mg/dL (0.2-1.2); CALCIUM 10.4 mg/dL (8.4-10.2); CREATININE, serum 1.1 mg/dL (0.72-1.25); POTASSIUM 4.4 mmol/L (3.5-4.5); TOTAL PROTEIN 7.6 gm/dL (6.2-8.1)
--- NOTE | 2021-02-16 13:12 | NUR ---
physical therapy in to work with patient, he is ambulating in the eli slow with less ataxia
--- NOTE | 2021-02-16 13:41 | NUR ---
Equalizing Saw Operator met with patient to check in. When asked how he is doing, patient gives a thumbs up. Patient attempted to ask SW a question using the whiteboard, however SW could not interpret the writing. SW could make out "how long till goes" but not the final word, despite asking patient to repeat it. SW wrote response "I don't know" on the whiteboard.
--- NOTE | 2021-02-16 13:51 | NUR ---
returned from working with physical therapy and is now in bed and resting quietly
--- NOTE | 2021-02-16 14:10 | NUR ---
fax sent to [facility] for psych consult
--- NOTE | 2021-02-16 14:49 | NUR ---
health information systems technician in and chest xray completed
--- NOTE | 2021-02-16 15:20 | NUR ---
put mechanical systems control engineer light and when etnered room he was pointing to bathroom and to himself, provided urinal but had already been incontinent of large amount urine, care provided, radiology here to take patient for MRI, Dr Rose also here and reviewed consult from Dr Whittington last week, adjustments to meds are being made
--- NOTE | 2021-02-16 15:51 | NUR ---
returned to room per WC and assisted back to bed
[2021-02-16 16:19] VITALS: BP 123/75; PULSE 94; TEMP 98.1
--- NOTE | 2021-02-16 17:20 | NUR ---
assisted to sitting up in bed to have Dr Rose rossi in to see patient
--- NOTE | 2021-02-16 17:59 | NUR ---
Dr Crandall in to see patient
--- NOTE | 2021-02-16 19:02 | NUR ---
bedside shift report given to LISA milner
--- NOTE | 2021-02-17 00:14 | NUR ---
PT RESTING QUIETLY IN BED, OCCASIONALLY HEARD COUGHING. PT'S HOB IS ELEVATED. PT HAD USED CALL LIGHT EARLIER IN NIGHT, WAS VERY DIFFICULT TO UNDERSTAND WHAT HE WAS TELLING STAFF. PT HAD REQUESTED MORE BLANKETS ET WAS COLD, WAS GIVEN BLANKETS FROM WARMER. PT HAD WHISPERED NO WHEN ASKED IF HE NEEDED ANYTHING ELSE. PT DOES MOVE SELF IN BED ET FROM SIDE TO SIDE FREQUENTLY. RESPIRATIONS ARE UNLABORED. BED ALARM ON, CALL LIGHT WITHIN REACH.
[2021-02-17 05:28] VITALS: BP 130/70; PULSE 71; TEMP 97.4
--- NOTE | 2021-02-17 06:30 | NUR ---
Report received from LISA Hart. Patient is sleeping in bed. Call light and bedside table are within reach. Will continue to monitor patient throughout shift.
--- NOTE | 2021-02-17 15:53 | NUR ---
Dr. Moser stopped by to see patient and inquired if there are any changes with the patient. This nurse gave her an update on patient's current medical condition.
--- NOTE | 2021-02-17 15:59 | NUR ---
Vehicle Operator Technician provided a copy of team conference notes to patient, who gives SW a thumbs up. Patient also states "I feel better".
[2021-02-17 17:41] VITALS: BP 117/82; PULSE 94; TEMP 98.4
--- NOTE | 2021-02-17 19:00 | NUR ---
RECEIVED CHANGE OF SHIFT REPORT FROM DAY SHIFT RN. EXIT ALARM WHILE IN BED, CALL LIGHT WITHIN REACH.
[2021-02-18 05:34] VITALS: BP 130/71; PULSE 79; TEMP 98.1
--- NOTE | 2021-02-18 07:16 | NUR ---
BRIEF CHANGE OF SHIFT REPORT WRITTEN FOR DAY SHIFT RN.
--- NOTE | 2021-02-18 11:08 | NUR ---
Patient has gone down to radiology for lumbar puncture. Patient has too late flat after procedure, therefore is on medical hold from therapies for the rest of the day.
[2021-02-18 12:40] LABS: GLUCOSE,CSF 63 mg/dL (40-70); TOTAL PROTEIN,CSF 68 mg/dL (15-45)
[2021-02-18 13:27] LABS: CSF APPEARANCE CLEAR; CSF COLOR COLORLESS; CSF RBC 4 /mm3 (0-0)
[2021-02-18 13:29] LABS: CSF MONONUCLEAR 85 % (70-100); CSF POLYMORPHONUCLEAR 14 % (0-6)
[2021-02-18 16:19] VITALS: BP 127/71; PULSE 80; TEMP 98.1
--- NOTE | 2021-02-18 22:09 | NUR ---
PT RESTING IN BED. ALERT. LEGALLY BLIND AND [place]. SPEECH IS DIFFICULT TO UNDERSTAND. PT DENIES NEEDS AT THIS TIME. BED ALARM SET. CALL LIGHT IN REACH.
[2021-02-19 04:50] VITALS: BP 143/77; PULSE 60; TEMP 97.4
--- NOTE | 2021-02-19 07:43 | NUR ---
awake and had breakfast, now he has called out to be changed, incontinent of urine and care provided, full assessment completed, see interventions for furthe info,
--- NOTE | 2021-02-19 08:40 | NUR ---
speech therapy in to work with patient
--- NOTE | 2021-02-19 08:41 | NUR ---
occupational therapy in to work with patient
--- NOTE | 2021-02-19 14:00 | NUR ---
Countersinker Balance Screw Hole met with patient to check in before the weekend. Patient gives thumbs up and states "okay". SW will continue to follow.
[2021-02-19 17:18] VITALS: BP 146/82; PULSE 98; TEMP 98.3
--- NOTE | 2021-02-19 20:48 | NUR ---
PT ALERT TONIGHT. TAKES PILLS WHOLE WITH H20. PT ABLE TO RAISE HEAD OF BED PER SELF PRIOT TO TAKING PILLS. PT USES THUMBS UP GESTURE. CALL LIGHT IN REACH. BED ALARM SET.
[2021-02-20 05:40] VITALS: BP 126/79; PULSE 71; TEMP 97.9
--- NOTE | 2021-02-20 10:08 | NUR ---
PCT REPORT TO THIS NURSE THAT THE PT WAS LOWERED TO FLOOR BY PCT DUE TO INBALE TO WALK TO BATHROOM. UPON ASSESSEMENT PT DENIES HITTING HIS HEAD NO VISIBLE INURY NOTED. PT ASSITED BACK TO WILL WC BY THIS NURSE AND PCT WITH GAIT BELT RONINE GUZMAN CALLED AND NOTIFIED. NO NEW ORDERS RECEIVED, WILL CONT TO MONITOR.
--- NOTE | 2021-02-20 10:12 | NUR ---
PT ACTING INAPPROPRIATE THIS AM, HITTING HIS HEAD ON THE HEADBOAD, RESTLESS UNABLE TO STAY STILL. RONNIE GUZMAN CALLED AND NOTIFY. NO NEW ORDERS RECEIVED, RECOMEND TO NOTIFY DR. PARKS
--- NOTE | 2021-02-20 10:24 | NUR ---
PT CURRENTLY SLEEPING AFTER A DOSE OF ATIVAN GIVEN. WILL CONT TO FAMILIA
--- NOTE | 2021-02-20 14:10 | NUR ---
DR. PARKS CALLED AND UPDATED ON CURRENT PATIENT BEHAVIOURS. ORDERS RECEIVED FOR RESPIRIDONE 0.5MG BID, CHANGE ATIVAN 0.5MG BID TO PRN AND TO OBTAIN EKG.
[2021-02-20 15:48] VITALS: BP 122/95; PULSE 91; TEMP 98.5
[2021-02-21 05:03] VITALS: BP 125/80; PULSE 63; TEMP 98.6
--- NOTE | 2021-02-21 06:50 | NUR ---
Report received from LISA Teresa. Patient is sleeping in bed. Call light and bedside table are within reach. Will continue to monitor patient throughout shift.
--- NOTE | 2021-02-21 07:32 | NUR ---
pt was cooperative with this RN this shift, tech reported two episodes of thrashing about in bed. using call light and expressing needs appropiately.
[2021-02-21 08:11] LABS: CREATININE, serum 0.96 mg/dL (0.72-1.25); MAGNESIUM 1.9 mg/dL (1.6-2.6); POTASSIUM 3.8 mmol/L (3.5-4.5)
[2021-02-21 08:17] LABS: BASO % 0.6 % (0.0-2.0); EOS # 0.2 K/mm3 (0.0-0.7); EOS % 3.4 % (0-4.0); GRAN # 3.5 K/mm3 (1.4-6.5); GRAN % 54.5 % (42.2-75.2); HEMATOCRIT 42.9 % (42.0-52.0); HEMOGLOBIN 14.5 g/dl (13.5-18.0); LYMPH % 31.3 % (20.0-51.0); MEAN CELL VOLUME 95 fl (80.0-100.0); MEAN CORPUSCULAR HEMOGLOBIN 32 pg (27.0-31.0); MEAN CORPUSCULAR HGB CONC 34 g/dl (33.0-37.0); MEAN PLATELET VOLUME 11.3 fl (7.4-10.4); MONO # 0.6 K/mm3 (0.1-0.6); PLATELET COUNT 151 K/mm3 (130-400); RED BLOOD COUNT 4.54 M/mm3 (4.20-5.60); REDCELL DISTRIBUTION WIDTH-CV 12.7 % (11.5-14.5)
[2021-02-21 16:34] VITALS: BP 114/74; PULSE 94; TEMP 98.1
--- NOTE | 2021-02-21 17:56 | NUR ---
Patient reported his pain level, 4/10 is better and he has very little pain and he has no nausea at this time.
--- NOTE | 2021-02-21 21:08 | NUR ---
PT RESTING IN BED. CALM AND COOPERATIVE. TAKES PILLS WITH WATER. LEGALLY BLIND. [place]. SPEECH DIFFICULT TO UNDERSTAND. INCONT IN BRIEFS. ABLE TO USE CALL LIGHTH WHEN WET. CALL LIGHT IN REACH. BED ALARM SET.
[2021-02-22 04:47] VITALS: BP 114/77; PULSE 77; TEMP 97.9
--- NOTE | 2021-02-22 10:34 | NUR ---
PT UP TO SIDE OF BED WITH THERAPY THEN TO RECLINER. PT IS BLIND AND [place]. AM MEDS GIVEN ORDERED.
[2021-02-22 15:58] VITALS: BP 123/83; PULSE 85; TEMP 97.9
--- NOTE | 2021-02-22 18:51 | NUR ---
RECEIVED CHANGE OF SHIFT REPORT FROM DAY SHIFT RN.
[2021-02-23 03:35] VITALS: BP 97/63; PULSE 76; TEMP 98
--- NOTE | 2021-02-23 07:01 | NUR ---
CHANGE OF SHIFT REPORT GIVEN TO DAY SHIFT BOZENA GONZALEZ
[2021-02-23 07:54] LABS: ALBUMIN CSF 55.3 mg/dL (<=27.0)
[2021-02-23 08:02] LABS: CSF IGG/ALBUMIN 0.1 (<=0.21); CSF,IGG 5.6 mg/dL (<=8.1)
--- NOTE | 2021-02-23 11:12 | NUR ---
PT UP TO RECLINER WITH THERAPY. RETURNED TO BED WITH HELP OF STAFF. PT ATE BREAKFAST WITH ST.
[2021-02-23 13:34] LABS: CSF SYNTHESIS RATE 3.64 mg/24 h (<=12); CSF-IGG INDEX 0.53 (<=0.85); IGG/ALBUMIN SERUM 0.19 (<=0.40)
[2021-02-23 14:18] LABS: CSF OLIG BD INTERPRETATION 0 bands (<2); SE OLIGOCLONAL BANDING 0 bands (())
--- NOTE | 2021-02-23 16:08 | NUR ---
Supervisor Byproducts contacted oCng at [facility] [employer] and faxed a demographic sheet requesting that he run patient's insurance to check for skilled benefit as patient may require SNF at discharge. Cong advised that what he found was that patient does have skilled benefit, but it requires a prior authorization. Cong reports that patient has met his deductible and out of pocket for the year.
[2021-02-23 16:37] VITALS: BP 111/70; PULSE 102; TEMP 98.6
--- NOTE | 2021-02-23 19:00 | NUR ---
RECEIVED CHANGE OF SHIFT REPORT FROM DAY SHIFT RN. BED ALARM ON WITH CALL LIGHT WITHIN REACH. PATIENT INCONTINENT OF URINE, INCONTINENT CARE GIVEN, PATIENT TURNS SELF WITH DIRECTION/SUPERVISION.
[2021-02-24 04:49] VITALS: BP 105/56; PULSE 82; TEMP 97.3
--- NOTE | 2021-02-24 06:40 | NUR ---
Report received from LISA Andrade. Patient is sleeping in bed. Call light and bedside table are within reach. Will continue to monitor patient throughout shift.
--- NOTE | 2021-02-24 07:17 | NUR ---
CHANGE OF SHIFT REPORT GIVEN TO DAY SHIFT TY GONZALEZ.
[2021-02-24 16:48] VITALS: BP 115/64; PULSE 83; TEMP 98.2
--- NOTE | 2021-02-24 21:00 | NUR ---
PT CALM AND COOPERATIVE AT THIS TIME. ABLE TO MAKE NEEDS KNOWN ALTHOUGH COMMUNICATION IS DIFFICULT D/T TO SPEECH AND HEARING ISSUES AND IS LEGALLY BLIND. CALL LIGHT IN REACH. BED ALARM SET.
--- NOTE | 2021-02-24 21:21 | NUR ---
PT'S BROTHER FREDRICK CALLED TO CHECK ON ANY UPDATES.
--- NOTE | 2021-02-25 02:38 | NUR ---
PT AGITATED. SEE MAR FOR LORAZEPAM GIVEN.
[2021-02-25 04:05] VITALS: BP 115/65; PULSE 79; TEMP 98.1
--- NOTE | 2021-02-25 16:11 | NUR ---
Seed Sales Manager provided copy of team conference notes to patient. SW read in previous evening's nursing notes that patient's brother Maxx called to check on patient. SW asked patient if he had any siblings and he began to toss and turn in bed. At one point patient got almost on all fours then quickly laid down on his stomach. PAMELA stated to patient she would let him rest. PAMELA collaborated with Haley, IPR Director who will follow up with night staff on obtaining phone numbers from any family member that calls on this patient.
[2021-02-25 18:00] VITALS: BP 130/82; PULSE 91; TEMP 98.1
--- NOTE | 2021-02-25 20:47 | NUR ---
PT RESTING IN BED. CALM AND COOPERTIVE. TAKES HS MEDS W/O DIFFICULTY. NO NEEDS AT THIS TIME. CALL LIGHT IN REACH. BED ALARM SET.
[2021-02-26 05:40] VITALS: BP 129/83; PULSE 86; TEMP 98.3
[2021-02-26 17:05] VITALS: BP 102/62; PULSE 97; TEMP 98.2
[2021-02-27 06:21] VITALS: BP 102/63; PULSE 79; TEMP 98.1
[2021-02-27 17:01] VITALS: BP 120/75; PULSE 89; TEMP 97.7
--- NOTE | 2021-02-28 04:54 | NUR ---
PT HAS SLEPT APPROX. HALF OF THE NIGHT. FREQUENTLY INCONTINENT OF URINE. PT GETS EXTREMELY AGITATED, SOMETIMES PHYSICALLY, IF YOU CAN'T GUESS WHAT HE WANTS OR WHAT HE'S TRYING TO TELL YOU.
[2021-02-28 06:10] VITALS: BP 135/84; PULSE 96; TEMP 97.9
--- NOTE | 2021-02-28 06:58 | NUR ---
shift report received from LISA Beebe
--- NOTE | 2021-02-28 07:35 | NUR ---
sat up in bed and had breakfast, now is thrashing about in bed wanting changed, hygiene provided and linens changed, full assessment completed, see interventions for further inf, has redness to both knees and medical aspect of ankles that appears to look like it is from rubbing on the sheets,
--- NOTE | 2021-02-28 09:59 | NUR ---
calls human resources operations coordinator light asking to be changed after being incontinent of urine, care provided
--- NOTE | 2021-02-28 11:22 | NUR ---
remains in bed and appears to be sleeping
--- NOTE | 2021-02-28 12:27 | NUR ---
assisted sitting up in bed to eat, unable to understand what he wanted and took my hand and rubbed his chest, provided him a bib and then he was quiet and started to eat
--- NOTE | 2021-02-28 14:37 | NUR ---
called and left message with friend, Ira, to please call this nurse
[2021-02-28] MEDS ORDERED: RISPERDAL 0.5M0.5 MG PO (15:17)
[2021-02-28] MEDS ORDERED: LATUDA120 MG PO (15:20)
[2021-02-28 15:29] VITALS: BP 135/84; PULSE 96; TEMP 97.9
[2021-02-28 16:17] VITALS: BP 107/66; PULSE 99; TEMP 98.3
--- NOTE | 2021-02-28 16:30 | NUR ---
EMS here for transfer, incontinent care provided, patient stood at side of bed and transferred to EMS stretcher, discharged per [facility]
--- NOTE | 2021-02-28 16:49 | NUR ---
marie called to LISA Wheatley at [facility]
--- NOTE | 2021-02-28 17:36 | NUR ---
spoke with Ira, friend of Aba's and informed her of his transfer to [facility]
== END 2021-02-28 16:30 | disposition short-term general hospital (02) | DRG 70 ==
PROVIDERS: Physical Medicine & Rehabilitation Sports Medicine; Physician Assistant; Psychiatry & Neurology Neurology; ADMIT Internal Medicine
DX: G93.41 Metabolic encephalopathy (principal); A41.9 Sepsis, unspecified organism; J18.9 Pneumonia, unspecified organism; E87.1 Hypo-osmolality and hyponatremia; A86 Unspecified viral encephalitis; H91.93 Unspecified hearing loss, bilateral; R26.0 Ataxic gait; R47.1 Dysarthria and anarthria; F22 Delusional disorders; E83.52 Hypercalcemia; R32 Unspecified urinary incontinence; F25.8 Other schizoaffective disorders; E78.5 Hyperlipidemia, unspecified; E03.9 Hypothyroidism, unspecified; E87.6 Hypokalemia; S20.411A Abrasion of right back wall of thorax, initial encounter; S00.11XA Contusion of right eyelid and periocular area, initial encounter; W19.XXXA Unspecified fall, initial encounter; Z60.2 Problems related to living alone; Z79.2 Long term (current) use of antibiotics; Z79.891 Long term (current) use of opiate analgesic; Z73.6 Limitation of activities due to disability; Y92.238 Other place in hospital as the place of occurrence of the external cause; Z20.828 Contact with and (suspected) exposure to other viral communicable diseases
CPT/HCPCS: 99222-AI; 99231-AI; 99232-AI; 99233-AI; A9575; J1650